=== PATIENT | female | born 1935 | race Caucasian/White ===

== ENCOUNTER 2021-04-06 08:33 | Inpatient (IN) | payer OTHER ==
[~2021-04-06] VITALS: Ht 160 cm; Wt 105.5 kg
--- NOTE | ~2021-04-06 | CON ---
[address] [address] CONSULTATION Name: JARRETTSTEF Osmani Room: [address] IN .R.#: [id number] Admission: 04/06/21 Attend Phys: Manuel Gerber MD Discharge: Date of : 37 Report #: [id number] THIS REPORT FOR: cc: Kati Scott MD, Tuongvan T. MD Namin, Farid M. MD ~ DATE OF CONSULTATION: 04/07/2021 REASON FOR CONSULT: Rectal bleeding. HISTORY OF PRESENT ILLNESS: This is an 85-year-old female who presents to our hospital with lower GI bleed. The patient reports that her last colonoscopy was little over 5 years ago and was significant for hemorrhoids. She has been recently started on Eliquis for AFib and reports that her rectal bleeding has gotten worse. The patient reports that she was having a small amount of blood per rectum daily, but the night before admission, she started having significant amounts, which prompted her to come to the hospital. She denies any significant GI symptoms as she denies nausea, vomiting, dyspepsia, dysphagia, odynophagia, constipation or diarrhea. PAST MEDICAL HISTORY: Significant for history of CHF, renal failure, GI bleed, right mastectomy, tonsillectomy, hypercholesterolemia, hypertension and constipation. ALLERGIES: SIGNIFICANT TO PENICILLIN AND BACTRIM. MEDICATIONS: Please refer to MAR. SOCIAL HISTORY: The patient lives at home. Denies tobacco or alcohol use. FAMILY HISTORY: Negative for GI malignancy. PHYSICAL EXAMINATION: VITAL SIGNS: Reveals blood pressure 116/58, respirations 16, pulse 80, temperature 36.4 centigrade. LUNGS: Clear. CARDIOVASCULAR: Regular rate. ABDOMEN: Soft, nontender, nondistended. Bowel sounds are positive. LABORATORY DATA: WBC 7.0, hemoglobin is 11.1, platelet count 207. Sodium is 137, potassium 3.6, BUN is 63, creatinine is 2.1, glucose is 107, AST is 67, ALT 214, alkaline phosphatase is 156[place] [address] CONSULTATION Name: STEF FARIAS Room: [address] IN [facility]#: [id number] Admission: 04/06/21 Attend Phys: Manuel Gerber MD Discharge: Date of : 37 Report #: [id number] IMAGING: CT of abdomen and pelvis was obtained. The appendix appeared mildly dilated measuring 8 mm with fluid and gas within it. There was no inflammation surrounding the appendix. There was evidence of diverticulosis of sigmoid without diverticulitis. ASSESSMENT AND PLAN: The patient with elevated transaminases, kidney disease and atrial fibrillation, for which she has been on Eliquis. The patient has been having rectal bleeding, which prompted her to come to hospital. The bleeding has subsided since she has been off of Eliquis. Her hemoglobin is above 11. Her last colonoscopy was more than 5 years ago. We will continue monitoring LFTs to see if they uptrend. We may consider abdominal ultrasound and viral hepatitis serology. I will prep her for colonoscopy and if she had internal hemorrhoids, which were source of her bleeding, we may need banding. The patient and son agreeable with plan. By: [id number] Seay MD /nt
--- NOTE | ~2021-04-06 | PROC ---
[address] [address] PROCEDURE REPORT Name: STEF FARIAS Room: [address] IN M.R.#: [id number] Admission: 04/06/21 Attend Phys: Manuel Gerber MD Discharge: Date of : 37 Report #: [id number] THIS REPORT FOR: cc: Kati Scott MD, Tuongvan T. MD [facility],Medical Records Staff ~ For GI report, please see the Provation report in Perceptive 7 content. By: [id number] Records Staff TARA /TERESA
[~2021-04-06 08:33] MED LIST: ADULT LOW DOSE81 MG PO; APAP500 PO; CALCIUM WITH VIT D PO; COLACE100 MG PO; FISH OIL/OMEGA PO; LISINOPRIL20 MG PO; LOVENOX SQ; NORCO 5-325 TA1 EACH PO; OXYCODONE HCL 55 MG PO; TRIAMTERENE-HC1 EAC1 PO; [UNRECOGNIZED DRUG - OTHER] PO
[2021-04-06 08:41] VITALS: BP 121/71
[2021-04-06] MEDS ORDERED: MIRALAX119 GM PO (08:47)
[2021-04-06] MEDS ORDERED: DILTIAZEM ER180 M2 PO (08:47)
[2021-04-06] MEDS ORDERED: ELIQUIS5 MG PO (08:47)
[2021-04-06] MEDS ORDERED: PROCTO MED HC (08:48)
[2021-04-06 09:37] LABS: ABSOLUTE BASOPHILS 0.1 thou/uL (0.0-0.2); ABSOLUTE EOSINOPHILS 0.1 thou/uL (0.0-0.7); ABSOLUTE LYMPHOCYTES 1.6 thou/uL (0.8-5.3); ABSOLUTE MONOCYTES 1.1 thou/uL (0.0-1.2); ABSOLUTE NEUTROPHILS 7.3 thou/uL (1.6-8.1); BASOPHILS 1.3 %; EOSINOPHILS 0.7 %; HEMATOCRIT 40.1 % (37.0-47.0); HEMOGLOBIN 12.9 gm/dL (12.0-15.0); LYMPHOCYTES 15.9 %; MCHC 32.2 g/dL (28.0-37.0); MCV 93.1 fL (80.0-100.0); MONOCYTES 10.8 %; MPV 7.9 fl. (7.2-11.1); NUCLEATED RBCS 0 /100WBC; PLATELET COUNT* 263 thou/uL (150-400); POLYS 71.3 %; WBC 10.3 thou/uL (4.0-11.0)
[2021-04-06 09:51] LABS: CALCIUM 9.4 mg/dL (8.5-10.1); CREATININE 2.6 mg/dL (0.6-1.3); POTASSIUM 4.1 mmol/L (3.5-5.1)
[2021-04-06 09:55] LABS: ALBUMIN 4.4 g/dL (3.4-5.0); TOTAL BILIRUBIN 0.6 mg/dL (<0.1-1.0); TOTAL PROTEIN 7.4 g/dL (6.4-8.2)
[2021-04-06 10:23] LABS: URINE BILIRUBIN NEGATIVE (Negative); URINE BLOOD 2+ (Negative); URINE CLARITY CLEAR; URINE COLOR YELLOW; URINE GLUCOSE-RANDOM NEGATIVE (Negative); URINE KETONES NEGATIVE (Negative); URINE LEUKOCYTES-REFLEX TRACE (Negative); URINE NITRITE-REFLEX NEGATIVE (Negative); URINE PROTEIN TRACE (Negative); URINE SPECIFIC GRAVITY 1.025 (1.005-1.030); URINE UROBILINOGEN 0.2 E.U./dl (0.2-1.0)
--- NOTE | 2021-04-06 10:35 | EKG ---
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: : 1935 Requested By: Roshan Henning Order Number: [id number] MD: Armando Hernandez Measurements Intervals [place] Rate: 70 P: NV: QRS: 212 QRSD: 147 T: 30 QT: 448 QTc: 484 Interpretive Statements Atrial fibrillation LBBB low voltage Compared to ECG 11/09/2012 09:35:53 Intraventricular conduction delay now present Sinus rhythm no longer present Electronically Signed On 04-06-2021 10:34:55 CDT by Armando Hernandez [email or web address] <ELECTRONICALLY SIGNED> By: Armando Hernandez MD, [facility] 04/06/21 1034 0935 0935 Armando Hernandez MD, [facility] /EPI
[2021-04-06 10:42] LABS: HYALINE CASTS >10 Many /LPF (None Seen)
[2021-04-06 10:43] LABS: CRYSTALS None Seen /LPF (None Seen); MUCUS 4-6 Moderate strn/LPF (None Seen); SQUAMOUS >10 Many /LPF (0-3); URINE RBC 3-10 Few /HPF (0-2); URINE WBC-REFLEX 0-5 Rare /HPF (0-5)
[2021-04-06 10:45] LABS: FINE GRANULAR CASTS 0-3 Few /LPF (None Seen)
[2021-04-06 10:46] LABS: BACTERIA-REFLEX None Seen /HPF (None Seen)
[2021-04-06 14:37] VITALS: BP 102/56
[2021-04-06 14:57] VITALS: BP 102/43
[2021-04-06 16:00] VITALS: BP 111/62
[2021-04-06 20:59] VITALS: BP 107/54
[2021-04-07] VITALS (7 sets, daily range): BP systolic 104–132; BP diastolic 46–68
[2021-04-07 05:23] LABS: ABSOLUTE BASOPHILS 0.1 thou/uL (0.0-0.2); ABSOLUTE EOSINOPHILS 0.1 thou/uL (0.0-0.7); ABSOLUTE LYMPHOCYTES 1.6 thou/uL (0.8-5.3); ABSOLUTE MONOCYTES 0.8 thou/uL (0.0-1.2); ABSOLUTE NEUTROPHILS 4.4 thou/uL (1.6-8.1); BASOPHILS 0.8 %; EOSINOPHILS 1.5 %; HEMATOCRIT 33.1 % (37.0-47.0); HEMOGLOBIN 11.1 gm/dL (12.0-15.0); LYMPHOCYTES 23.5 %; MCH 31.1 pg (26.0-34.0); MCHC 33.6 g/dL (28.0-37.0); MCV 92.6 fL (80.0-100.0); MONOCYTES 11.4 %; NUCLEATED RBCS 0 /100WBC; PLATELET COUNT* 207 thou/uL (150-400); POLYS 62.8 %; RBC 3.58 mil/uL (4.20-5.00); RDW-CV 13.6 % (10.5-14.5)
[2021-04-07 05:28] LABS: CREATININE 2.1 mg/dL (0.6-1.3); POTASSIUM 3.6 mmol/L (3.5-5.1)
--- NOTE | 2021-04-07 14:51 | CON ---
[address] [address] CONSULTATION Name: JARRETTSTEF Osmani Room: [address] IN M.R.#: [id number] Admission: 04/06/21 Attend Phys: Manuel Gerber MD Discharge: Date of : 37 Report #: [id number] THIS REPORT FOR: cc: Kati Scott MD, Tuongvan T. MD Khan, Abid R. MD ~ NEPHROLOGY CONSULTATION CONSULTING PHYSICIAN: Dr. Gerber. REASON FOR CONSULTATION: Acute kidney injury. HISTORY OF PRESENT ILLNESS: An 85-year-old female with no history of kidney disease who comes in with shortness of breath, tells me that she recently had a stress test and was diagnosed with AFib, was started on anticoagulation and has a history of hemorrhoids and noticed some blood in her stool. Other than the shortness of breath, she appears to be comfortable. She was on Aleve for arthritis in the past, but stopped months ago after she read about the side effects. She currently has no complaints. Other than some increased work of breathing, appears to be comfortable. REVIEW OF SYSTEMS: Constitutional, psych, heme, eyes, ENT, respiratory, cardiac, GI, , endocrine, all negative except as documented above. PAST MEDICAL HISTORY: Hypertension, dyslipidemia, AFib, degenerative joint disease. FAMILY HISTORY: Not pertinent in this 85-year-old female. SOCIAL HISTORY: No current tobacco use. MEDICATIONS: Reviewed. PHYSICAL EXAMINATION: VITAL SIGNS: Blood pressure 102/56, pulse 58, respirations 26, temperature 36.3. GENERAL: No acute distress. HEENT: Eyes are open. EARS: Externally normal. NECK: Supple. CARDIOVASCULAR: Regular rate. LUNGS: Diminished with some crackles. ABDOMEN: Soft. MUSCULOSKELETAL: [place] [address] CONSULTATION Name: STEF FARIAS Room: [address]#: [id number] Admission: 04/06/21 Attend Phys: Manuel Gerber MD Discharge: Date of : 37 Report #: [id number] PSYCHIATRIC: Awake, alert. LABORATORY DATA: White cell count 10.3, hemoglobin 12.9, platelets 263. Sodium 134, potassium 4.1, chloride 100, bicarbonate 25, BUN 63, creatinine 2.6, glucose 114, calcium 9.4, albumin 4.4. CK was 72. ASSESSMENT AND PLAN: 1. Acute kidney injury in the setting of congestive heart failure. gastrointestinal bleed. Admission creatinine 2.6. Baseline creatinine unknown. She was also on hydrochlorothiazide as an outpatient. CT scan does not show any hydronephrosis. UA is noted. Stopped Aleve months ago. 2. Congestive heart failure, acute on chronic. 3. Atrial fibrillation. 4. Degenerative joint disease. 5. Hematuria, on Eliquis. 6. Left 1.3 cm renal cyst, indeterminate. PLAN: 1. IV Lasix ordered. Agree with this. Will need a followup CT scan to assess the renal cyst as recommended by Radiology. 2. May need a cardiology input, not sure what her baseline EF is. Hopefully, renal function will improve with gentle diuresis. We will follow along with you. Thank you for requesting my opinion in the care and management of this patient. <ELECTRONICALLY SIGNED> By: Fannie Brady MD 04/07/21 1451 1422 1449Abiashley Brady MD /nt
[2021-04-08 04:34] VITALS: BP 127/69
[2021-04-08 04:48] LABS: ABSOLUTE BASOPHILS 0.1 thou/uL (0.0-0.2); ABSOLUTE EOSINOPHILS 0.2 thou/uL (0.0-0.7); ABSOLUTE LYMPHOCYTES 1.2 thou/uL (0.8-5.3); ABSOLUTE NEUTROPHILS 6.4 thou/uL (1.6-8.1); BASOPHILS 0.6 %; EOSINOPHILS 1.8 %; HEMATOCRIT 35.8 % (37.0-47.0); LYMPHOCYTES 13.6 %; MCH 30.9 pg (26.0-34.0); MCHC 33.6 g/dL (28.0-37.0); MONOCYTES 11.1 %; MPV 7.7 fl. (7.2-11.1); NUCLEATED RBCS 0 /100WBC; PLATELET COUNT* 266 thou/uL (150-400); POLYS 72.9 %; RBC 3.89 mil/uL (4.20-5.00); RDW-CV 14.1 % (10.5-14.5); WBC 8.8 thou/uL (4.0-11.0)
[2021-04-08 04:58] LABS: ALBUMIN 4.4 g/dL (3.4-5.0); CALCIUM 9.6 mg/dL (8.5-10.1); CREATININE 1.9 mg/dL (0.6-1.3); POTASSIUM 3.5 mmol/L (3.5-5.1); TOTAL BILIRUBIN 0.7 mg/dL (<0.1-1.0); TOTAL PROTEIN 7.2 g/dL (6.4-8.2)
[2021-04-08 07:58] VITALS: BP 114/57
--- NOTE | 2021-04-08 12:58 | CON ---
[address] [address] CONSULTATION Name: STEF FARIAS Room: [address] ADM IN M.R.#: [id number] Admission: 04/06/21 Attend Phys: Manuel Gerber MD Discharge: Date of : 37 Report #: [id number] THIS REPORT FOR: cc: Kati Scott MD, Tuongvan T. MD Blick, David R. MD [facility] ~ cc: Kati Scott MD DATE OF CONSULTATION: 04/07/2021 CARDIOLOGY CONSULTATION HISTORY OF PRESENT ILLNESS: The patient is an 85-year-old white female who I was asked to see in the hospital today after she was noted to be in atrial fibrillation. The patient has a long history of hypertension. She denies a previous history of heart disease. She is not very active this time because of her age and uses a cane. She was noted to have atrial fibrillation, was actually seen by Dr. Daugherty, my partner, last week in the cardiology clinic for cardiac evaluation. She has never been cardioverted. He recommended Eliquis for anticoagulation. The patient was doing well. Until recently, she had bleeding from a hemorrhoid. Her brought her to the Emergency Room yesterday and she was admitted. She denies any chest pain. She has noticed some shortness of breath, but has had no edema or fever. She denied any irregular heartbeat or syncope. She has had no previous bleeding. PAST MEDICAL HISTORY: She has had knee surgery, hip surgery, surgery for breast cancer. She has had skin cancer removed. She has a history of high blood pressure. MEDICATIONS: Her medications on admission included Dyazide, Eliquis, diltiazem. ALLERGIES: SHE HAS A PREVIOUS INTOLERANCE TO PENICILLIN AND SULFA DRUGS. FAMILY HISTORY: Negative for heart disease. SOCIAL HISTORY: She is . She and her live in [place]. Quit smoking years ago, rarely drinks alcohol. REVIEW OF SYSTEMS: She has no history of stroke, asthma. She has chronic kidney disease, no liver disease. She has skin cancer removed in the past. No psychiatric illness. No chronic skin condition. PHYSICAL EXAMINATION: GENERAL: Revealed an elderly, frail-appearing female, lying in bed. She [place] [address] CONSULTATION Name: STEF FARIAS Room: [address]#: [id number] Admission: 04/06/21 Attend Phys: Manuel Gerber MD Discharge: Date of : 37 Report #: [id number] VITAL SIGNS: Blood pressure 100/60, pulse 60. She is afebrile. HEENT: She was anicteric. Conjunctivae pink. Mucous membranes moist. NECK: Veins not appear distended. No carotid bruits. NECK: Supple. CHEST: Clear to auscultation. CARDIAC: Irregular rhythm. ABDOMEN: Obese. EXTREMITIES: Had no pitting edema. SKIN: Cool and dry. NEUROLOGICAL: Nonfocal. Dorsalis pedis pulse cannot be palpated. DIAGNOSTIC DATA: ECG on admission showed atrial fibrillation with a left bundle-branch block. Her workup, the patient actually had a nuclear stress test in February here at [facility] because of the newly diagnosed atrial fibrillation that was performed using Lexiscan that showed on perfusion imaging. It was a technically difficult study. There was breast attenuation. Because of limitation of study, the inferior wall could not be assessed. However, there was no obvious reversible ischemia. This appeared to be consistent with diaphragmatic attenuation as well as breast attenuation. Her chest x-ray on admission yesterday showed small effusion, some atelectasis. She had a CT scan of the abdomen because of the GI bleeding that suggested possible appendicitis, gallstones, diverticular disease, small effusion. LABORATORY DATA: Her lab work, BUN 63, creatinine was 2.1. Her SGOT 67, SGPT 214, alkaline phosphatase is 156. Troponin was mildly elevated at 0.25. BNP 4506. White blood cell count 7.0, hematocrit 40.1. Her COVID antigen stat test was negative. IMPRESSION AND RECOMMENDATIONS: 1. Atrial fibrillation. Rate controlled with diltiazem. Because of gastrointestinal bleeding, I would hold Eliquis at this time. 2. Hypertension. Because of kidney disease, I would hold her MINDY inhibitor and diuretic at this time. 3. Bleeding from the hemorrhoid. 4. History of breast cancer. 5. Chronic kidney disease. 6. Elevated liver function studies. 7. Borderline troponin. No history of chest pain or ECG changes. No evidence of myocardial infarction. 8. Anemia, possibly due to gastrointestinal bleeding. <ELECTRONICALLY SIGNED> By: Armando Hernandez MD, FACC 04/08/21 1258 0607 0948Daviashley Hernandez MD, FACC /nt
[2021-04-08 20:34] VITALS: BP 108/59
[2021-04-08 23:54] VITALS: BP 102/43
[2021-04-09] VITALS (7 sets, daily range): BP systolic 100–129; BP diastolic 40–62
[2021-04-09 05:23] LABS: ALBUMIN 3.6 g/dL (3.4-5.0); CREATININE 1.3 mg/dL (0.6-1.3); POTASSIUM 3.3 mmol/L (3.5-5.1); TOTAL BILIRUBIN 0.6 mg/dL (<0.1-1.0); TOTAL PROTEIN 5.9 g/dL (6.4-8.2)
[2021-04-09] MEDS ORDERED: ANUSOL-HC25 MG RECTAL (10:16)
[2021-04-09] MEDS ORDERED: DILTIAZEM 24HR180 M1 PO (10:16)
[2021-04-09 10:31] LABS: HEMATOCRIT 34.5 % (37.0-47.0); HEMOGLOBIN 11.1 gm/dL (12.0-15.0); MCH 30.2 pg (26.0-34.0); MCHC 32.3 g/dL (28.0-37.0); MCV 93.6 fL (80.0-100.0); MPV 7.8 fl. (7.2-11.1); RBC 3.69 mil/uL (4.20-5.00); RDW-CV 14.5 % (10.5-14.5)
== END 2021-04-09 14:05 | disposition home or self-care (01) | DRG 393 ==
LOC: M.ERS 08:33 → M.2W 10:52 → M.TBA-ER 10:52 → M.2W 16:10
PROVIDERS: Family Medicine; Internal Medicine; Internal Medicine Cardiovascular Disease; Internal Medicine Nephrology; ADMIT Internal Medicine; ATTEND Internal Medicine
PROC: 0DJD8ZZ Inspection of Lower Intestinal Tract, Via Natural or Artificial Opening Endoscopic (ICD-10-PCS; principal; 2021-04-08)
DX: K64.8 Other hemorrhoids (principal); N17.0 Acute kidney failure with tubular necrosis; I21.A1 Myocardial infarction type 2; I50.33 Acute on chronic diastolic (congestive) heart failure; I13.0 Hypertensive heart and chronic kidney disease with heart failure and stage 1 through stage 4 chronic kidney disease, or unspecified chronic kidney disease; I48.91 Unspecified atrial fibrillation; E78.5 Hyperlipidemia, unspecified; M19.90 Unspecified osteoarthritis, unspecified site; R31.9 Hematuria, unspecified; N28.1 Cyst of kidney, acquired; N18.9 Chronic kidney disease, unspecified; K57.30 Diverticulosis of large intestine without perforation or abscess without bleeding; D64.9 Anemia, unspecified; E78.00 Pure hypercholesterolemia, unspecified; Z20.822 Contact with and (suspected) exposure to COVID-19; Z90.11 Acquired absence of right breast and nipple; Z98.42 Cataract extraction status, left eye; Z98.41 Cataract extraction status, right eye; Z79.82 Long term (current) use of aspirin; Z79.899 Other long term (current) drug therapy; Z79.01 Long term (current) use of anticoagulants; Z88.0 Allergy status to penicillin; Z88.2 Allergy status to sulfonamides; Z85.3 Personal history of malignant neoplasm of breast; Z85.828 Personal history of other malignant neoplasm of skin; Z87.891 Personal history of nicotine dependence

== ENCOUNTER → 2021-04-29 | Outpatient (CLI) | payer OTHER ==
[~2021-04-29] MED LIST changes: +ANUSOL-HC25 MG RECTAL; +DILTIAZEM 24HR180 M1 PO; +DILTIAZEM ER180 M2 PO; +ELIQUIS5 MG PO; +MIRALAX119 GM PO; +PROCTO MED HC
[2021-04-29 10:55] LABS: CALCIUM 9.6 mg/dL (8.5-10.1); CREATININE 1.2 mg/dL (0.6-1.3); POTASSIUM 4.1 mmol/L (3.5-5.1)
== END ==
LOC: M.LAB 10:30
PROVIDERS: ATTEND Internal Medicine
DX: R06.00 Dyspnea, unspecified (principal)

== ENCOUNTER 2021-06-03 09:11 | Inpatient (IN) | payer OTHER ==
[~2021-06-03] VITALS: Ht 160 cm; Wt 103.1 kg
--- NOTE | ~2021-06-03 | H ---
[address] [address] HISTORY AND PHYSICAL Name: STEF FARIAS Room: [address] IN M.R.#: [id number] Admission: 06/03/21 Attend Phys: Dane Daugherty MD, Discharge: 06/07/21 Date of : 37 Report #: [id number] THIS REPORT FOR: cc: Kati Scott MD, Tuongvan T. MD [facility],Medical Records Staff ~ For History and Physical please refer to the consultation note in the patient's medical record. By: [id number] Records Staff [facility] /TERESA
[2021-06-03 10:39] VITALS: BP 139/79
[2021-06-03 12:50] LABS: HEMATOCRIT 38.1 % (37.0-47.0); HEMOGLOBIN 12.7 gm/dL (12.0-15.0); MCH 30.3 pg (26.0-34.0); MCHC 33.3 g/dL (28.0-37.0); MCV 91.1 fL (80.0-100.0); MPV 7.1 fl. (7.2-11.1); RBC 4.18 mil/uL (4.20-5.00); RDW-CV 15.1 % (10.5-14.5); WBC 8.1 thou/uL (4.0-11.0)
[2021-06-03 13:04] LABS: ALBUMIN 3.9 g/dL (3.4-5.0); CALCIUM 9.6 mg/dL (8.5-10.1); CREATININE 1.6 mg/dL (0.6-1.3); POTASSIUM 3.8 mmol/L (3.5-5.1); TOTAL BILIRUBIN 0.6 mg/dL (<0.1-1.0); TOTAL PROTEIN 6.9 g/dL (6.4-8.2)
[2021-06-03 16:04] VITALS: BP 116/69
[2021-06-03 19:30] VITALS: BP 131/66
[2021-06-04] VITALS (7 sets, daily range): BP systolic 105–135; BP diastolic 54–85
--- NOTE | 2021-06-04 12:25 | EKG ---
[place] [address] ELECTROCARDIOGRAM REPORT Name: STEF FARIAS Room: [address] ADM IN M.R.#: [id number] Admission: 06/03/21 Attend Phys: Chad Wallace Discharge: Date of : 39 Date of Service: 06/04/21 0839 Report #: [id number] THIS REPORT FOR: //name// [facility] Test Date: 2021-06-04 Test Time: 08:39:04 Pat Name: STEF FARIAS Department: Room: [address] Gender: F Projects Manager: GEORGE : 1935 Requested By: Diana Corrigan Order Number: [id number] Reading MD: aDne Daugherty Measurements Intervals [place] Rate: 88 P: RI: QRS: -39 QRSD: 132 T: 17 QT: 423 QTc: 512 Interpretive Statements Atrial fibrillation atypical LEFT BUNDLE BRANCH BLOCK Baseline wander in lead(s) V4 Compared to ECG 04/06/2021 09:35:29LBBB persists Electronically Signed On 06-04-2021 12:25:49 CDT by Dane Daugherty [email or web address] <ELECTRONICALLY SIGNED> By: Dane Daugherty MD, [facility] 06/04/21 1225 0839 0839 Dane Daugherty MD, [facility] /EPI
[2021-06-05 04:41] VITALS: BP 123/53
[2021-06-05 09:00] VITALS: BP 120/68
[2021-06-05 09:26] LABS: CALCIUM 10.2 mg/dL (8.5-10.1); CREATININE 1.2 mg/dL (0.6-1.3)
[2021-06-05 09:30] LABS: POTASSIUM 4.7 mmol/L (3.5-5.1)
[2021-06-05 12:00] VITALS: BP 145/87
--- NOTE | 2021-06-05 14:48 | EKG ---
[place] [address] ELECTROCARDIOGRAM REPORT Name: STEF FARIAS Room: [address] ADM IN M.R.#: [id number] Admission: 06/03/21 Attend Phys: Chad Wallace Discharge: Date of : 39 Date of Service: 06/05/21 1001 Report #: [id number] THIS REPORT FOR: //name// 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
[2021-06-05 16:00] VITALS: BP 139/85
[2021-06-05 20:00] VITALS: BP 152/89
[2021-06-06] VITALS (9 sets, daily range): BP systolic 106–145; BP diastolic 58–97
[2021-06-06 06:07] LABS: CALCIUM 9.6 mg/dL (8.5-10.1); CREATININE 1.3 mg/dL (0.6-1.3)
[2021-06-06 06:08] LABS: POTASSIUM 3.4 mmol/L (3.5-5.1)
--- NOTE | 2021-06-06 12:37 | CON ---
[address] [address] CONSULTATION Name: STEF FARIAS Room: [address] IN M.R.#: [id number] Admission: 06/03/21 Attend Phys: Dane Daugherty MD, Discharge: Date of : 37 Report #: [id number] THIS REPORT FOR: cc: Kati Scott MD, Tuongvan T. MD Holkins,Dane Reddy MD [facility] ~ DATE OF CONSULTATION: 06/06/2021 CARDIOLOGY CONSULTATION FOLLOWUP HISTORY OF PRESENT ILLNESS: The patient is a very pleasant 85-year-old female who has demonstrated persistent atrial fibrillation and diastolic heart failure. She has been hospitalized for sotalol loading. She has been maintained on Eliquis 5 mg b.i.d., diltiazem extended release 180 mg daily, potassium in varying dosages, and received Lasix 80 mg IV b.i.d. during the hospitalization. She has continued to manifest atrial fibrillation. With parenteral diuresis, there has been a marked interval diuresis with diminution in lower extremity edema and improvement in shortness of breath. PHYSICAL EXAMINATION: GENERAL: Demonstrates an elderly female who is alert, appropriate, in no acute distress. VITAL SIGNS: Blood pressure is 120/60, pulse rate is 84 and irregularly irregular, respirations are 18 per minute. NECK: Jugular venous pressure is normal. CHEST: Clear. CARDIAC: Reveals an irregularly irregular rhythm and a moderate rate. ABDOMEN: Moderately obese. EXTREMITIES: Reveal moderate bilateral lower extremity edema. LABORATORY DATA: Potassium is 3.4 after diuresis. Renal function parameters are borderline elevated. IMPRESSION: 1. Persistent atrial fibrillation. 2. Acute on chronic diastolic heart failure. 3. Mild mitral regurgitation. 4. Hypertension. 5. Hyperlipidemia. 6. Exogenous obesity. [address] [address] CONSULTATION Name: STEF FRAIAS Room: [address]#: [id number] Admission: 06/03/21 Attend Phys: Dane Daugherty MD, Discharge: Date of : 37 Report #: [id number] PLAN: 1. We will administer sotalol, Eliquis and additional potassium this morning. 2. We will plan to proceed with QUINN cardioversion today and attempt to convert the patient to a sinus mechanism, which should improve her hemodynamic status if we can achieve a stable sinus rhythm. This has been discussed with the patient in detail. LOCATION: [facility]. <ELECTRONICALLY SIGNED> By: Dane Daugherty MD, FACC 06/06/21 1237 0904 0926Jozhou Daugherty MD, FACC /nt
--- NOTE | 2021-06-06 13:26 | TEE ---
[place] [address] TRANSESOPHAGEAL ECHOCARDIOGRAM Name: STEF FARIAS Room: [address] IN [facility]#: [id number] Admission: 06/03/21 Attend Phys: Chad Wallace Discharge: Date of : 39 Date of Service: 06/06/21 1326 Report #: [id number] THIS REPORT FOR: cc: Kati Scott MD, Tuongvan T. MD Liston, Michael J. MD [facility] ~ APPROVED REPORT Study performed: 06/06/2021 11:00:56 EXAM: Transesophageal Echocardiogram Patient Location: In-Patient Room #: 103 Status: routine BSA: 2.04 HR: 102 bpm BP: 137/86 mmHg Rhythm: Atrial Fibrillation Other Information Study Quality: Good Indications Atrial Fibrillation Echo Enhancing Agent Indication: Rule out Shunt Agent(s) / Amount(s) Used: Agitated Saline 10 cc Procedure After obtaining informed consent, patient underwent transesophageal echo in the [employer]. Type of Sedation : Conscious Sedation Sedation was administered by Dora Young RN. Sedation start time: 1105 Case end Time: 1115 Sedation was achieved intravenously with: Versed (2) Fentanyl (50) Transesophageal probe was inserted and advanced into esophagus without difficulty by Romain Manzano MD, FACC. Echo enhancement indication: R/O Septal defect. Echo enhancement agent administered: Agitated Saline The QUINN was performed without complications. Synchronized Cardioversion acheived with 360 Joules after 1 attempt([place] [address] TRANSESOPHAGEAL ECHOCARDIOGRAM Name: STEF FARIAS Room: [address] IN [facility].#: [id number] Admission: 06/03/21 Attend Phys: Chad Wallace Discharge: Date of : 39 Date of Service: 06/06/21 1326 Report #: [id number] Rhythm following Synchronized Cardioversion: Normal Sinus Rhythm Throughout the procedure, the blood pressure, pulse oximetry, cardiac rhythm, and rate were monitored. The patient tolerated the procedure without adverse effects. Recovery from conscious sedation was uneventful and vital signs were stable. Left Ventricle The left ventricle is normal size. There is global hypokinesis of the left ventricle. There is normal left ventricular wall thickness. Left ventricular systolic function is mildly decreased. LVEF is 40%. Right Ventricle The right ventricle is normal size. The right ventricular systolic function is normal. Atria The left atrium size is normal. No thrombus is visualized in the left atrium or appendage. The interatrial septum is intact with no evidence for an atrial septal defect. The right atrium size is normal. Aortic Valve Mild aortic valve sclerosis. No aortic regurgitation is present. Mitral Valve The mitral valve is normal in structure. Mild to moderate mitral regurgitation. No evidence of mitral valve stenosis. Tricuspid Valve The tricuspid valve is normal in structure. Mild tricuspid regurgitation. Pulmonic Valve The pulmonary valve is normal in structure. Great Vessels The aortic root is normal in size. Pericardium There is no pericardial effusion. <Conclusion> The left ventricle [place] [address] TRANSESOPHAGEAL ECHOCARDIOGRAM Name: STEF FARIAS Room: [address] IN [facility].#: [id number] Admission: 06/03/21 Attend Phys: Chad Wallace Discharge: Date of : 39 Date of Service: 06/06/21 1326 Report #: [id number] There is normal left ventricular wall thickness. Left ventricular systolic function is mildly decreased. LVEF is 40%. There is global hypokinesis of the left ventricle. The left atrium size is normal. No thrombus is visualized in the left atrium or appendage. The interatrial septum is intact with no evidence for an atrial septal defect. Mild to moderate mitral regurgitation. Mild tricuspid regurgitation. <ELECTRONICALLY SIGNED> By: Romani Manzano MD, [facility] 06/06/216 25 25 Romain Manzano MD, FACC /INF
[2021-06-07] VITALS: BP 113/61
[2021-06-07 04:00] VITALS: BP 122/67
[2021-06-07 04:46] LABS: CALCIUM 9.5 mg/dL (8.5-10.1); CREATININE 1.2 mg/dL (0.6-1.3); POTASSIUM 3.2 mmol/L (3.5-5.1)
[2021-06-07 08:00] VITALS: BP 140/77
[2021-06-07] MEDS ORDERED: DILTIAZEM 24HR180 M1 PO (08:44)
[2021-06-07] MEDS ORDERED: SORINE 80 MG TA80 M1 PO (08:44)
[2021-06-07] MEDS ORDERED: KLOR-CON M2020 MEQ PO (08:45)
[2021-06-07] MEDS ORDERED: TORSEMIDE20 MG PO (08:46)
[2021-06-07 11:19] VITALS: BP 140/77
--- NOTE | 2021-06-07 14:39 | EKG ---
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: : 1935 Requested By: Diana Corrigan Order Number: [id number] Aden MD: Dane Daugherty Measurements Intervals [place] Rate: 75 P: 56 [place]: 177 QRS: -46 QRSD: 135 T: 40 QT: 440 QTc: 492 Interpretive Statements Sinus rhythm Atrial premature complexes IVCD, consider atypical LBBB Compared to ECG 06/05/2021 10:01:54 Atrial premature complex(es) now present Atrial fibrillation no longer present Electronically Signed On 06-07-2021 14:39:31 CDT by Dane Daugherty [email or web address] <ELECTRONICALLY SIGNED> By: Dane Daugherty MD, FACC 06/07/21 1439 1006 1006 Dane Daugherty MD, FACC /EPI
--- NOTE | 2021-06-07 16:13 | D ---
[facility] [address] [place] [address] DISCHARGE SUMMARY Name: STEF FARIAS Osmani Room: [address] IN M.R.#: [id number] Admission: 06/03/21 Attend Phys: Dane Daugherty MD, Discharge: 06/07/21 Date of : 39 Report #: [id number] THIS REPORT FOR: cc: Kati Scott MD, Tuongvan T. MD Holkins, John M. MD [facility] ~ DATE OF DISCHARGE: 06/07/2021 FINAL DISCHARGE DIAGNOSES: 1. Acute on chronic diastolic heart failure. 2. Persistent atrial fibrillation. 3. Mild mitral regurgitation. 4. Hypertension. 5. Hyperlipidemia. 6. Exogenous obesity. PROCEDURES: On 06/06/2021--QUINN cardioversion. HOSPITAL COURSE: The patient is a very pleasant 85-year-old female with a history of hypertension and diastolic heart failure. Recently, she has developed a decompensation of heart failure with shortness of breath and marked lower extremity edema. She had previously demonstrated paroxysmal atrial fibrillation, but it became persistent. The patient was hospitalized on 06/05/2021 and noted to be in persistent atrial fibrillation with diastolic heart failure. She underwent parenteral diuresis with a significant output during the ensuing 3 days and was loaded with sotalol 80 mg b.i.d. She was continued on Eliquis 5 mg b.i.d. On 06/06/2021, she underwent QUINN cardioversion. That revealed no intracavitary and specifically no left atrial appendage thrombus with moderate impairment in global LV function. She underwent a DC cardioversion with rhythm reverting from atrial fibrillation to a sinus mechanism in which she remained. The patient was clinically stable following the procedure and remained in sinus rhythm on 06/07/2021. DISCHARGE MEDICATIONS: She was discharged to home on the following medications: Sotalol 80 mg b.i.d., diltiazem extended release 180 mg daily, potassium chloride 20 mEq b.i.d., torsemide 20 mg b.i.d., calcium with vitamin D 2 tablets daily, aspirin 81 mg daily, fish oil 300 mg daily, Eliquis 5 mg b.i.d., MiraLax 17 grams daily, hydrocortisone acetate or Anusol hydrocortisone 25 mg suppository [place] [address] DISCHARGE SUMMARY Name: STEF FARIAS Room: [address]#: [id number] Admission: 06/03/21 Attend Phys: Dane Daugherty MD, Discharge: 06/07/21 Date of : 39 Report #: [id number] The patient is scheduled to return to see my nurse practitioner on 06/11/2021 at 1100 at the [facility]. Therefore, the patient is discharged home in stable condition on the aforementioned medications with followup as iterated above. <ELECTRONICALLY SIGNED> By: Dane Daugherty MD, [facility] 06/07/21 [id number] Maureen Daugherty MD, [facility] /nt
== END 2021-06-07 11:50 | disposition home or self-care (01) | DRG 291 ==
LOC: M.PRE 09:11 → M.ORTHSURG 10:05 → M.PRE 14:12 → M.ORTHSURG 06-07 11:50
PROVIDERS: ADMIT Internal Medicine; ATTEND Internal Medicine
PROC: B24BZZ4 Ultrasonography of Heart with Aorta, Transesophageal (ICD-10-PCS; principal; 2021-06-06)
PROC: 5A2204Z Restoration of Cardiac Rhythm, Single (ICD-10-PCS; principal; 2021-06-06)
DX: I11.0 Hypertensive heart disease with heart failure (principal); I50.33 Acute on chronic diastolic (congestive) heart failure; I48.19 Other persistent atrial fibrillation; Z68.41 Body mass index [BMI] 40.0-44.9, adult; E66.09 Other obesity due to excess calories; I34.0 Nonrheumatic mitral (valve) insufficiency; E78.5 Hyperlipidemia, unspecified; I48.0 Paroxysmal atrial fibrillation; Z79.899 Other long term (current) drug therapy

== ENCOUNTER → 2021-06-11 | Outpatient (CLI) | payer OTHER ==
[~2021-06-11] MED LIST changes: +KLOR-CON M2020 MEQ PO; +SORINE 80 MG TA80 M1 PO; +TORSEMIDE20 MG PO
[2021-06-11 12:36] LABS: CALCIUM 9.4 mg/dL (8.5-10.1); CREATININE 1.3 mg/dL (0.6-1.3); POTASSIUM 3.9 mmol/L (3.5-5.1)
== END ==
LOC: M.LAB 11:57
PROVIDERS: ATTEND Registered Nurse
DX: I50.42 Chronic combined systolic (congestive) and diastolic (congestive) heart failure (principal)